=== PATIENT | male | born 1970 | race Caucasian/White ===

== ENCOUNTER 2016-06-24 05:08 | Day surgery (SDC) | payer OTHER ==
[2016-06-22 16:59] VITALS: BMI 26.6
[2016-06-24] MEDS ORDERED: BUPIVACAINE HCL/PF 0.5% (5MG/ML) 10 ML VIAL ONE ×2 (07:12→07:23)
[2016-06-24] MEDS ORDERED: DEXAMETHASONE SOD PHOSPHATE 4 MG/1 ML VIAL ONE (07:39)
[2016-06-24] MEDS ORDERED: LIDOCAINE HCL/PF 2% SDV 5ML VIAL ONE (07:39)
[2016-06-24] MEDS ORDERED: PROPOFOL 20 ML ONE ×2 (07:39)
[2016-06-24] MEDS ORDERED: KETOROLAC TROMETHAMINE 30 MG/1 ML VIAL ONE (07:39)
[2016-06-24] MEDS ORDERED: MIDAZOLAM HCL 2 MG/2 ML SINGLE DOSE VIAL ONE (07:40)
[2016-06-24] MEDS ORDERED: ceFAZolin SODIUM 1 GM VIAL IVPB ONE (08:24)
[2016-06-24] MEDS ORDERED: BUPIVACAINE HCL/PF 0.5% (5MG/ML) 10 ML VIAL IJ ONE (08:37)
--- NOTE | 2016-06-24 08:53 | OP ---
Operative Note - Note: Operative Date: 06/24/16 Pre-Operative Diagnosis: right knee medial meniscus tear Operation: right knee arthroscopy, partial medial meniscectomy Post-Operative Diagnosis: Same as Pre-op Surgeon: Brandon Thomas Anesthesiologist/MACHINE CEMENTER: Laxmi Fernandez Anesthesia: General, Local Specimens Removed: shavings Estimated Blood Loss (mls): 0 Blood Volume Replaced (mls): 0 Fluid Volume Replaced (mls): 500 Operative Report Dictated: Yes
--- NOTE | 2016-06-24 08:54 | HP ---
Satellite [facility] - Chief Complaint Chief Complaint: right knee pain - Past Medical History Allergies/Adverse Reactions: Allergies Allergy/AdvReac Type Severity Reaction Status Date / Time No Known Drug Allergies Allergy Verified 06/24/16 06:50 - Current Medications Current Medications: Medication Instructions Recorded Methylprednisolone [Medrol Dose 4 mg PO ASDIR 06/22/16 Dmitry] Omeprazole 20 mg PO DAILY 06/22/16 Hydrocodone/Acetaminophen 1 each PO Q6H #40 tablet MDD 4 06/24/16 [Hydrocodon-Acetaminoph 7.5-325] Satellite Physical Exam - Physical Examination Vital Signs: Vital Signs Period Temp Pulse Resp BP Sys/James Pulse Ox Last 24 Hr 97.8 F 64 20 118/85 95 General Appearance: Well Nourished, Well Developed, Alert & Oriented x3 ENT: Clear Lung: Normal air movement Heart: Regular rate & rhythm Extremities: Other (right knee- + swelling, + ttp, decr rom, nvi MRI + mt) Neurological: Intact, Alert, Oriented Satellite Impression/Plan - Impression/Plan Impression: right knee internal derangement Operative Procedure: right knee arthroscopy Date to be Performed: 06/24/16
--- NOTE | 2016-06-24 09:22 | SPEC ---
DATE OF OPERATION: 06/24/2016 PREOPERATIVE DIAGNOSIS: Right knee medial meniscus tear. POSTOPERATIVE DIAGNOSIS: Right knee medial meniscus tear. PROCEDURE: Right knee arthroscopy, partial medial meniscectomy. SURGEON: Brandon Thomas MD CLOTH ROLL WINDER: None. MEDICAL RECORD ADMINISTRATOR: Laxmi Fernandez CRNA ANESTHESIA: LMA anesthesia with local injection of 20 mL 0.5% Marcaine. DRAINS: None. COMPLICATIONS: None. SPECIMENS: Arthroscopic shavings. BLOOD LOSS: None. BLOOD GIVEN: None. FLUID REPLACEMENT: 500 mL. INDICATIONS: This patient is a 46-year-old male with a preoperative diagnosis of a retear of the right knee medial meniscus. This was confirmed by preoperative MRI. After understanding the potential risks, complications, alternatives, and benefits of surgery versus nonsurgical treatment, the patient elected to undergo this procedure. DETAILS OF THE CASE: Overall, the knee looked good. The patient did have a small retear of the posterior horn of the medial meniscus. This was debrided with a curved shaver. The patient had no arthritis of the medial compartment or the lateral compartment or the patellofemoral joint. The ACL looked good. When probed, it had the appropriate tension. Overall, the entire knee looked pristine and somewhat underwhelming, and he had only a very small meniscus tear which I debrided. The rest of it was normal. Gram IV Ancef, etc. TOTAL TOURNIQUET TIME: 15 minutes. DESCRIPTION OF PROCEDURE: Patient was taken to the operating room and general anesthesia with LMA was administered by the anesthesiologist. Right lower extremity was prepped and draped in usual sterile fashion. The supralateral and medial lateral infrapatellar portal sites were infiltrated with 1% Xylocaine with epinephrine. Supralateral portal was made with a 15 blade blunt trocar. The right knee was aspirated and inflated with a cocktail of 10 mL of 1% Xylocaine with 0.5% Marcaine and 20 mL of arthroscopic saline. Medial and lateral infrapatellar portals were then made with a 15 blade blunt trocar. The scope was placed in the lateral infrapatellar portal and up into the suprapatellar pouch. Pouch was visualized to be clean. The medial and lateral gutters were visualized to be clean. The undersurface of the patella and trochlea were visualized to be intact. With valgus stress on the knee, the medial compartment was entered and medial meniscus was visualized, probed, and found to have a complex tear of the posterior horn. This was debrided back to smooth and stable meniscal tissue using meniscal biters and arthroscopic shaver. Medial femoral condyle was run and found to be intact as was the medial tibial plateau. At 90 degrees the ACL was visualized, probed and found to be intact. In the figure four position, the lateral compartment was entered. Lateral meniscus was visualized, probed and found to be intact. The lateral femoral condyle was run and found to be intact as was the lateral tibial plateau. The knee was irrigated with copious amounts of irrigation. The portals were closed with 4-0 nylon. Prior to closure of the supralateral portal, 20 mL of 0.5% Marcaine was infused through the outflow portal prior to pulling the cannula. Sterile pressure dressing was placed over the knee. Patient was awakened from anesthesia and transferred to recovery room in stable condition. No complications. Estimated blood loss was negligible. Lauren [id number]
[2016-06-24] MEDS ORDERED: ONDANSETRON 4 MG/2 ML VIAL IVPUSH PRN (09:46)
[2016-06-24] MEDS ORDERED: oxyCODONE HCL 5 MG TABLET PO PRN (09:46)
[2016-06-24] MEDS ORDERED: PROMETHAZINE HCL 25 MG/1 ML VIAL IVPUSH PRN (09:46)
[2016-06-24] MEDS ORDERED: LACTATED RINGERS SOLUTION 1,000 ML IV SCH (10:00)
[2016-06-24 10:01] VITALS: TEMP 97.8
[2016-06-24 13:30] VITALS: BP 112/60; PULSE 66
--- NOTE | 2016-06-25 12:57 | PATH ---
Surgical Pathology Report Patient Name: NORRIS GUARDADO [facility]. Rec. #: [id number] /Age/Gender: 1970 (Age: 46) / M Account: [id number] Location: [facility] SURGICAL Taken: 06/24/2016 Received: 06/24/2016 Reported: 06/25/2016 Physicians: Brandon Thomas M.D. Specimen(s) Received SHAVINGS RIGHT KNEE Clinical History Right knee tear Final Diagnosis SOFT TISSUE, RIGHT KNEE, ARTHROSCOPIC SHAVINGS: SYNOVIUM AND FIBROCARTILAGE WITH MYXOHYALINE DEGENERATION. Electronically Signed Calos Ramos M.D. Gross Description Received in formalin, labeled "right knee shavings" is a 2.5 x 2.0 x 0.3 cm aggregate of carvalho-yellow soft tissue fragments. A customer assistance representative portion is submitted in one cassette. /06/24/201606/24/2016
== END 2016-06-24 12:40 | disposition home or self-care (01) ==
LOC: JASU-SURG 05:08
PROVIDERS: ATTEND Orthopaedic Surgery
PROC: 0SBC4ZZ Excision of Right Knee Joint, Percutaneous Endoscopic Approach (ICD-10-PCS; principal; 2016-06-24 08:00)
DX: S83.241A Other tear of medial meniscus, current injury, right knee, initial encounter (principal); X58.XXXA Exposure to other specified factors, initial encounter; Y93.9 Activity, unspecified; Y92.9 Unspecified place or not applicable; Y99.9 Unspecified external cause status
CPT/HCPCS: 88304-TC; 94760

== ENCOUNTER 2017-12-29 04:53 | Day surgery (SDC) | payer OTHER ==
[2017-12-27 18:25] VITALS: BMI 28.3
[2017-12-29] MEDS ORDERED: PROPOFOL 20 ML ONE (07:12)
[2017-12-29] MEDS ORDERED: MIDAZOLAM HCL 2 MG/2 ML SINGLE DOSE VIAL ONE (07:12)
[2017-12-29] MEDS ORDERED: SUCCINYLCHOLINE CHLORIDE 200 MG/10 ML VIAL ONE (07:12)
[2017-12-29] MEDS ORDERED: LIDOCAINE HCL/PF 2% SDV 5ML VIAL ONE (07:12)
--- NOTE | 2017-12-29 07:55 | HP ---
Satellite [facility] - Chief Complaint Chief Complaint: right knee pain - Past Medical History Allergies/Adverse Reactions: Allergies Allergy/AdvReac Type Severity Reaction Status Date / Time No Known Drug Allergies Allergy Verified 12/29/17 07:14 - Current Medications Current Medications: Home Medications Medication Instructions Recorded Omeprazole 20 mg PO DAILY 06/22/16 Naproxen [Naprosyn] 500 mg PO Q8H PRN 12/27/17 Hydrocodone/Acetaminophen 1 each PO Q6H PRN #40 tablet MDD 6 12/29/17 [Hydrocodone-Acetamin 5-325 mg] Satellite Physical Exam - Physical Examination Vital Signs: Vital Signs Period Temp Pulse Resp BP Sys/James Pulse Ox Last 24 Hr 98.6 F 61 20 137/81 96 General Appearance: Well Nourished, Well Developed, Alert & Oriented x3 ENT: Clear Lung: Normal air movement Heart: Regular rate & rhythm Extremities: Other (right knee- + swelling, + ttp ,decr rom, + mcmurrays, nvi) Neurological: Intact, Alert, Oriented Satellite Impression/Plan - Impression/Plan Impression: right knee internal derangement Operative Procedure: right knee arthroscopy Date to be Performed: 12/29/17
[2017-12-29] MEDS ORDERED: ceFAZolin SODIUM 1 GM VIAL ONE (08:38)
[2017-12-29] MEDS ORDERED: DEXAMETHASONE SOD PHOSPHATE 4 MG/1 ML VIAL ONE (08:39)
[2017-12-29] MEDS ORDERED: BUPIVACAINE HCL/PF (5 MG/ML) 30 ML VIAL IJ ONE (08:47)
[2017-12-29] MEDS ORDERED: ceFAZolin SODIUM 1 GM VIAL IVPB ONE (08:48)
--- NOTE | 2017-12-29 09:12 | OP ---
Operative Note - Note: Operative Date: 12/29/17 Pre-Operative Diagnosis: right knee pain Operation: right knee arthroscopy, partial synovectomy Findings: synovitis in suprapatellar pouch Post-Operative Diagnosis: Same as Pre-op Surgeon: Brandon Thomas Anesthesiologist/METERS SUPERINTENDENT: Rudy Lawrence Anesthesia: General, Local Specimens Removed: shavings Estimated Blood Loss (mls): 0 Blood Volume Replaced (mls): 0 Fluid Volume Replaced (mls): 500 Operative Report Dictated: Yes
[2017-12-29] MEDS ORDERED: ONDANSETRON 4 MG/2 ML VIAL IVPUSH PRN (09:21)
[2017-12-29] MEDS ORDERED: LACTATED RINGERS SOLUTION 1,000 ML IV SCH (09:30)
--- NOTE | 2017-12-29 09:54 | OP ---
DATE OF OPERATION: DATE OF DICTATION: 12/29/2017 PREOPERATIVE DIAGNOSIS: Right knee pain. POSTOPERATIVE DIAGNOSIS: Right knee pain, intra-articular synovitis. OPERATION: Right knee arthroscopy, partial synovectomy. SURGEON: Adria Chatman M.D. POLYTECHNIC REGISTRAR: None. ANESTHESIOLOGIST: Rudy Lawrence CRNA ANESTHESIA: LMA anesthesia, with intra-articular injection of 20 mL of 0.5% Marcaine. DRAINS: None. COMPLICATIONS: None. SPECIMENS: Arthroscopic shavings. BLOOD LOSS: None. BLOOD GIVEN: None. FLUID REPLACEMENT: 500 mL. INDICATIONS FOR PROCEDURE: The patient is a 47-year-old male with the preoperative diagnosis of recurrent right knee pain. After understanding the potential risks , complications, alternatives and benefits of surgery versus nonsurgical treatment , the patient elected to undergo this procedure. PROCEDURE: The patient was brought to the operating room, peripheral IV placed and IV sedation given. One gram of IV Ancef was given. LMA anesthesia was induced. Ample Webril was placed around the right thigh. A tourniquet was applied. A Styrofoam ring was applied. The right lower extremity was placed into the C- clamp leg chakraborty, prepped and draped in sterile fashion, elevated, exsanguinated with an Esmarch bandage and tourniquet inflated to 275 mmHg. A superomedial portal was established in the already existing previous knee arthroscopy incision scars. Outflow cannula was introduced. A lateral portal was established. Arthroscope was introduced under direct visualization. Using a spinal needle, a medial portal was established. Diagnostic arthroscopy was performed. In the medial compartment, things looked good. He had some cracking and fissuring of the cartilage of the medial femoral condyle. Photographs were taken. 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 Much of the medial meniscus had been removed. There was no new fresh tear. The area was copiously irrigated and washed out. Next our attention was turned to the intercondylar notch. The ACL looked good and had the appropriate tension. It was photographed. The lateral compartment looked good. There was a small amount chondromalacia of the lateral femoral condyle, but overall it looked quite good. The lateral tibial plateau looked good. The lateral meniscus looked pristine. Photographs were taken. Next, our attention turned to the patellofemoral joint. The patellofemoral joint itself looked good. There was some cracking and fissuring in the femoral trochlea, but overall the cartilage looked good, the undersurface of the patella and the femoral trochlea. There was some suprapatellar pouch synovitis. This was debrided with the shaver. Once this was done, we had full visualization of the patellofemoral joint. There was no other pathology. So overall the knee looked quite good. If anything, the pathology was quite underwhelming. He did have some synovitis which could cause pain and recurrent swelling, which was removed. 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 All instrumentation was removed. Extra saline was removed. The arthroscopy portals were closed with 3-0 nylon sutures. Then 20 mL of 0.5% Marcaine was introduced into the joint. The area was then washed and dried, and covered with Xerofoam, 4 x 4 , Webril and a 6-inch LUCILLE bandage. The tourniquet was taken down after a total tourniquet time of 18 minutes. There were no complications during the case. The patient tolerated the procedure quite well and was brought to the ambulatory recovery room in stable condition. ADRIA CHATMAN M.D. [id number] MTDD
[2017-12-29 11:20] VITALS: BP 136/79; PULSE 54; TEMP 97.9
--- NOTE | 2017-12-30 14:51 | PATH ---
Surgical Pathology Report Patient Name: NORRIS GUARDADO [facility]. Rec. #: [id number] /Age/Gender: 1970 (Age: 47) / M Account: [id number] Location: [facility] Taken: 12/29/2017 Received: 12/29/2017 Reported: 12/30/2017 Physicians: Brandon Thomas M.D. Specimen(s) Received RIGHT KNEE SHAVINGS Clinical History Right knee tear Final Diagnosis KNEE SHAVINGS, RIGHT, ARTHROSCOPY: FRAGMENTS OF CARTILAGE, DENSE FIBROCONNECTIVE TISSUE, ADIPOSE TISSUE, AND SYNOVIUM. Electronically Signed Anne Rosenberg M.D. Gross Description Received in formalin, labeled "right knee shavings," is a 1.6 x 1.5 x 0.2 cm. aggregate of carvalho-yellow soft tissue fragments. The specimen is entirely submitted in one cassette. DL/12/29/2017 saudi/12/29/2017
== END 2017-12-29 12:15 | disposition home or self-care (01) ==
LOC: JASU-SURG 04:53
PROVIDERS: ATTEND Orthopaedic Surgery
PROC: 0SBD4ZZ Excision of Left Knee Joint, Percutaneous Endoscopic Approach (ICD-10-PCS; principal; 2017-12-29 08:00)
DX: M65.862 Other synovitis and tenosynovitis, left lower leg (principal)
CPT/HCPCS: 88304-TC; 94760